=== PATIENT | male | born 1965 | race Caucasian/White ===

== ENCOUNTER → 2017-10-12 | Outpatient (CLI) | payer MEDICAID ==
[~2017-10-12] MED LIST: CLIN150C14 PO; DIAZ5TAB4 PO; ESLI400T PO; GABA-827 PO; HYDR-3237 PO; LAMO100T PO; LAMO25TA13 PO; LEVE10007 PO; LEVE250T5 PO; LEVE500T53 PO; LISI1TAB5 PO; OXYC-302 PO; TRAZ100T15 PO; VENL25TA PO
== END | disposition home or self-care (01) ==
LOC: RAD 07:52
PROVIDERS: ATTEND Nurse Practitioner
DX: M25.561 Pain in right knee (principal); M50.322 Other cervical disc degeneration at C5-C6 level; G89.29 Other chronic pain; M19.012 Primary osteoarthritis, left shoulder; M41.86 Other forms of scoliosis, lumbar region
CPT/HCPCS: 72040; 72114

== ENCOUNTER → 2017-12-03 | Outpatient (CLI) | payer MEDICAID | END | disposition home or self-care (01) | LOC: RAD 10:06 | PROVIDERS: ATTEND Anesthesiology | DX: M41.86 Other forms of scoliosis, lumbar region (principal); M47.896 Other spondylosis, lumbar region; M47.892 Other spondylosis, cervical region; M99.23 Subluxation stenosis of neural canal of lumbar region | CPT/HCPCS: 72050; 72110 ==

== ENCOUNTER → 2018-12-05 | Outpatient (CLI) | payer MEDICAID ==
[~2018-12-05] MED LIST changes: +ALPRazolam 1MG TAB ONE; +TRAZ-137 PO; -TRAZ100T15 PO
== END | disposition home or self-care (01) ==
LOC: RAD 09:19
PROVIDERS: ATTEND Physician Assistant Surgical
DX: M75.102 Unspecified rotator cuff tear or rupture of left shoulder, not specified as traumatic (principal); M19.012 Primary osteoarthritis, left shoulder; M99.23 Subluxation stenosis of neural canal of lumbar region; M51.37 Other intervertebral disc degeneration, lumbosacral region; M48.07 Spinal stenosis, lumbosacral region; M48.55XA Collapsed vertebra, not elsewhere classified, thoracolumbar region, initial encounter for fracture
CPT/HCPCS: 72148

== ENCOUNTER → 2019-01-09 | Outpatient (CLI) | payer MEDICAID ==
[~2019-01-09] MED LIST changes: -ALPRazolam 1MG TAB ONE
== END | disposition home or self-care (01) ==
LOC: CFH 07:52
PROVIDERS: ATTEND Physician Assistant Surgical
DX: M48.061 Spinal stenosis, lumbar region without neurogenic claudication (principal); M51.36 Other intervertebral disc degeneration, lumbar region; M41.86 Other forms of scoliosis, lumbar region; M85.80 Other specified disorders of bone density and structure, unspecified site; M99.23 Subluxation stenosis of neural canal of lumbar region
CPT/HCPCS: 72110; 72131; 77080